=== PATIENT | male | born 1965 | race Caucasian/White ===

== ENCOUNTER 2018-08-19 11:25 | Emergency (ER) | payer BC ==
[2018-08-19] MEDS ORDERED: Tetan/Diph/Pertus SYR(Tdap)* 0.5 ML SYR(BOOSTRIX) use SYR IM ONE (11:28)
--- NOTE | 2018-08-19 11:55 | UC ---
Laceration HPI - HPI Summary HPI Summary: 53-year-old male presents with laceration to the ulnar aspect of his palmar left hand that occurred approximately 30-45 minutes prior to arrival. States he lacerated on the edge of a manure equipment coordinator when he slipped while stepping off the back. He landed on the ground into manure covered soil. Last tetanus unknown. He did become lightheaded after the injury but denies loss of consciousness, chest pain, palpitations. - History Of Current Complaint Chief Complaint: UCLaceration Stated Complaint: LEFT HAND LAC Time Seen by Provider: 08/19/18 11:27 Hx Obtained From: Patient Laceration Location: Hand - left Mechanism Of Injury: FB Potential Onset/Duration: Sudden Onset Severity: Moderate Pain Intensity: 6 Aggravating Factors: Nothing Hands: 1 - Approximately 8 cm linear J-shaped flap laceration that extends into the subcutaneous layer - Allergies/Home Medications Allergies/Adverse Reactions: Allergies Allergy/AdvReac Type Severity Reaction Status Date / Time No Known Allergies Allergy Verified 08/19/18 11:32 PMH/Surg Hx/FS Hx/Imm Hx Endocrine History: Dyslipidemia Cardiovascular History: Cardiac Disease, Hypertension Other History Of: Negative For: Anticoagulant Therapy - Surgical History Surgical History: Yes Surgery Procedure, Year, and Place: 1994 ORIF BROKEN LEG, [facility]. 2007 KIDNEY BIOPSY, [facility]. 2011 CARDIAC CATHERIZATION WITH INSERTION OF 1 STENT, [facility] [place] - Family History Known Family History: Positive: Cardiac Disease, Hypertension - Social History Occupation: Works From/At Home Lives: With Family Alcohol Use: None Substance Use Type: None Smoking Status (MU): Former Smoker Type: Cigarettes Amount Used/How Often: <1 PPD FOR ABOUT 20 YEARS When Did the Patient Quit Smoking/Using Tobacco: 2005 - Immunization History Most Recent Tetanus Shot: unknown Review of Systems Constitutional: Negative Skin: Other - See HPI Respiratory: Negative Cardiovascular: Negative Gastrointestinal: Negative Neurovascular: Negative Musculoskeletal: Negative Neurological: Negative Is Patient Immunocompromised?: No All Other Systems Reviewed And Are Negative: Yes Physical Exam Triage Information Reviewed: Yes Appearance: Well-Appearing, No Pain Distress, Well-Nourished Vital Signs: Initial Vital Signs Temp 97.7 F 08/19/18 11:25 Pulse 64 08/19/18 11:25 Resp 16 08/19/18 11:25 BP 104/55 08/19/18 11:25 Pulse Ox 96 08/19/18 11:25 Vital Signs Reviewed: Yes Respiratory: Positive: Lungs clear, Normal breath sounds, No respiratory distress Cardiovascular: Positive: RRR, No Murmur, Pulses Normal, Brisk Capillary Refill Musculoskeletal: Positive: Strength Intact, ROM Intact - Bottom Liquor Attendant strength equal bilaterally. Flexion and extension of all fingers to resistance intact. Neurological: Positive: Alert, Other: - Sensation intact distally Skin: Positive: significant lesion(s) - 8 cm linear J-shaped flap laceration to the ulnar aspect of the palmar left hand with bleeding controlled. See diagram. Laceration Repair - Laceration Repair 1 Procedure Summary: Procedure note: Laceration repair ulnar aspect left palmar hand Informed consent was obtained before procedure started and the appropriate timeout was taken. The wound was irrigated prior to procedure by RN. Local anesthesia was mostly achieved using 0.25% marcaine however patient required an additional 2 ml lidocaine 1% without epi along the inferior aspect of wound for full anesthesia. The wound was copiously irrigated with 500ml sterile saline and chlohexadine solution. Patient then scrubbed hands with chlorhexadine and tap water followed by additional irrigation with tap water. The wound was thoroughly explored under a blood less field. No foreign body or tendon injury was noted. The wound margins were brought into good alignment and 11 interrupted sutures were placed using 4-0 ethilon. Estimated blood loss was minimal. A sterile gauze dressing was applied to the area by the RN. Anticipatory guidance, as well as standard post-procedure care was discussed with patient. Return precautions are given. The patient tolerated the procedure well without complications. Patient will be placed on 5 day course of cephalexin 500 mg TID for infection prophylaxis considering the mechanism of injury. He is to follow up in 2 days for a wound check then again in 10-14 days for suture removal and evaluation of the laceration. Description: Linear Laceration Size After Repair: Length (cm) - 7 Modified For Repair: No Type Injection: Local Anesthesia Used: 1.0% Lido - 2 ml, 0.25% Marcaine - 10 ml Cleansing Completed Via Routine Prep: Yes Irrigation With Pressure Irrigation Device: Yes Closure Material: Sutures Closure Method: Single Layer Suture Of: Skin Suture Type: Nylon - 4-0 Ethilon Laceration Course/Dx - Course/Dx Course Of Treatment: 53-year-old male with laceration to the ulnar aspect of his left palmar hand. He cut this on a sharp edge of a manure equipment coordinator when he slipped while stepping down from the back landing in a mixture of soil and manure. His tetanus was updated. The wound was thoroughly cleansed and irrigated. No foreign body or ligamental injury was noted. Laceration was repaired using 11 interrupted sutures with 4-0 Ethilon. Patient was placed in a clean gauze dressing following repair. Due to the high likelihood of contamination will place him on a 5 day course of cephalexin 3 times a day. The patient is to be leaving for a cruise to the [facility] in 3 days therefore have asked him to return in 2 days for a wound check prior to leaving. He will need to return in 10-14 days for suture removal. Wound care and warning symptoms were reviewed with the patient. He verbalizes understanding and agrees with plan of care. - Differential Dx - Laceration/Wound Differental Diagnoses: Laceration Provider Diagnoses: Linear flap laceration ulnar aspect left palmar hand Discharge - Sign-Out/Discharge Documenting (check all that apply): Patient Departure All imaging exams completed and their final reports reviewed: No Studies - Discharge Plan Condition: Stable Disposition: HOME Prescriptions: Cephalexin CAP* [Keflex 500 CAP*] 500 mg PO TID #15 cap Patient Education Materials: Care For Your Stitches (ED), Laceration (ED) Referrals: Tanvir Guerra MD [Primary Care Provider] - Additional Instructions: Leave the dressing that was applied in the clinic in place for the next 24 hours. Be sure to keep this clean and dry. After 24 hours you may remove the dressing and shower and wash your hands as normal. Avoid submerging you hand under water such as in taking a bath, swimming, or washing dishes until the sutures are removed. You should apply some antibiotic ointment such as Bacitracin to the wound and cover with a clean gauze dressing. This dressing should be changed at least once a day or any time it becomes wet or soiled. Your tetanus was updated in the clinic today. Be sure to contact your primary care provider to let them know so that your records can be updated. The numbing medication used to repair your laceration will begin to wear off in about 3-4 hours. You may use acetaminophen (Tylenol) or ibuprofen (Advil, Motrin ) according to directions as needed for pain. Start cephalexin (Keflex) 500 mg 1 capsule three times a day for 5 days to help prevent infection. I would like you to return in 2 days for a wound check before you leave for your cruise. Return here in 10-14 days for suture removal. Watch for signs of infection including fever greater than 100.5 F, redness that spreads, swelling of the hand, pain that is not managed with pain medication, numbness or tingling in the hand or fingers, or pus draining from the wound. Seek immediate medical attention should any of these occur. - Billing Disposition and Condition Condition: STABLE Disposition: Home
[2018-08-19] MEDS ORDERED: Bupivacaine 0.25% SDV PF* 10 ML VIAL INJ ONE ×2 (11:57→11:58)
[2018-08-19] MEDS ORDERED: Lidocaine 1%* 5 ML VIAL INJ ONE (12:25)
[2018-08-19 13:36] VITALS: BP 125/85
== END 2018-08-19 13:37 | disposition home or self-care (01) ==
LOC: UCCORT 11:25
DX: S61.412A Laceration without foreign body of left hand, initial encounter (principal); W26.8XXA Contact with other sharp object(s), not elsewhere classified, initial encounter; Y92.9 Unspecified place or not applicable; I10 Essential (primary) hypertension; I51.9 Heart disease, unspecified; Z23 Encounter for immunization; Z95.5 Presence of coronary angioplasty implant and graft; Z87.891 Personal history of nicotine dependence
CPT/HCPCS: 12004; 90471; 90715; 99212; G0463; J3490

== ENCOUNTER 2018-08-21 09:38 | Emergency (ER) | payer BC ==
[2018-08-21 11:39] VITALS: BP 117/86
--- NOTE | 2018-08-21 12:24 | UC ---
HPI Wound/Suture Re-check - HPI Summary HPI Summary: 53 yo Wm presents for left hand wound check s/p laceration repair 2 days ago. Denies f/c/n/v/d. - History Of Current Complaint Chief Complaint: Asha Stated Complaint: LEFT HAND LACERATION - RECHECK Time Seen by Provider: 08/21/18 11:52 Hx Obtained From: Patient Onset/Duration: Lasting Days Severity: Moderate Pain Intensity: 1 - Allergies/Home Medications Allergies/Adverse Reactions: Allergies Allergy/AdvReac Type Severity Reaction Status Date / Time No Known Allergies Allergy Verified 08/21/18 11:31 PMH/Surg Hx/FS Hx/Imm Hx Other History Of: Negative For: Anticoagulant Therapy - Surgical History Surgical History: Yes Surgery Procedure, Year, and Place: 1994 ORIF BROKEN LEG, [facility]. 2007 KIDNEY BIOPSY, [facility]. 2011 CARDIAC CATHERIZATION WITH INSERTION OF 1 STENT, [facility] [place] - Family History Known Family History: Positive: Cardiac Disease, Hypertension - Social History Alcohol Use: None Substance Use Type: None Smoking Status (MU): Former Smoker Type: Cigarettes Amount Used/How Often: <1 PPD FOR ABOUT 20 YEARS When Did the Patient Quit Smoking/Using Tobacco: 2005 - Immunization History Most Recent Tetanus Shot: 08/19/18 Review of Systems Constitutional: Negative Skin: Other - see HPI ENT: Negative Respiratory: Negative Cardiovascular: Negative Gastrointestinal: Negative Genitourinary: Negative Motor: Negative Neurovascular: Negative Musculoskeletal: Negative Neurological: Negative All Other Systems Reviewed And Are Negative: Yes Physical Exam - Summary Physical Exam Summary: Vital Signs Reviewed: Yes Appearance: Positive: Well-Appearing Skin: Positive: Left 4-5 cm palmar laceration, sutures intact, erythema and swelling, TTP, no lymphatic streaking noted, NVI Head/Face: Positive: Normal Head/Face Inspection Eyes: Positive: Normal, EOMI, JESUS MANUEL ENT: Positive: Normal ENT inspection Neck: Positive: Supple Respiratory/Lung Sounds: Positive: Clear to Auscultation Cardiovascular: Positive: Normal, RRR, S1, S2 Abdomen Description: Positive: Nontender, Soft Musculoskeletal: Positive: Normal Neurological: Positive: CN Intact II-XII Psychiatric: Positive: Normal Vital Signs: Initial Vital Signs Temp 36.4 C 08/21/18 11:32 Pulse 62 08/21/18 11:32 Resp 18 08/21/18 11:32 BP 117/86 08/21/18 11:32 Pulse Ox 97 08/21/18 11:32 Course/Dx - Course Course Of Treatment: Advised that I will increase the Keflex dose to 500 QID from TID and Added Bactrim DS for broader specturm abx coverage as pt FELL HAND FIRST into manure payroll tax specialist as it lacerated his hand. Increased frequency and addition of Bactrim due to increasing area of erythema and tenderness near the lateral wrist region. Wound care instructions provided - Differential Dx - Laceration/Wound Differential Diagnoses: Healing Wound Provider Diagnoses: wound infection. laceration Discharge - Sign-Out/Discharge Documenting (check all that apply): Patient Departure All imaging exams completed and their final reports reviewed: Yes - Discharge Plan Condition: Stable Disposition: HOME Prescriptions: Cephalexin CAP* [Keflex CAP*] 500 mg PO QID 7 Days #28 cap Patient Education Materials: Wound Infection (ED) Referrals: Tanvir Guerra MD [Primary Care Provider] - Additional Instructions: return to clinic in 8 days for wound re-check and possible suture removal - Billing Disposition and Condition Condition: STABLE Disposition: Home
== END 2018-08-21 12:27 | disposition home or self-care (01) ==
LOC: UCCORT 09:38
DX: Z48.00 Encounter for change or removal of nonsurgical wound dressing (principal); Z87.891 Personal history of nicotine dependence
CPT/HCPCS: 99212; G0463